=== PATIENT | male | born 1970 | race Caucasian/White ===

== ENCOUNTER → 2019-04-05 | Outpatient (CLI) | payer BC ==
--- NOTE | 2019-04-05 17:29 | KCIC ---
EXAM: CHEST PA LATERAL INDICATION: Cough. Productive cough with sputum for over one year.. TECHNIQUE: PA and lateral views COMPARISON: None FINDINGS: The heart size is normal. The great vessels appear unremarkable. There is no hilar or mediastinal mass. The lungs are clear. There is no pleural effusion or pneumothorax. There are no significant osseous abnormalities. IMPRESSION: No active cardiopulmonary disease. Consider chest CT in further evaluation given chronicity of symptoms. Electronically signed by: Doug Castillo MD (04/05/2019 5:26 PM) [facility]
--- NOTE | 2019-04-05 17:29 | KCIC ---
FOOT RIGHT 3V DATE: 04/05/2019 12:00 AM INDICATION: Pain after falling COMPARISON: 09/01/2017. FINDINGS: Bones: There is no evidence of acute fracture or dislocation. Posterior and plantar calcaneal enthesophytes. Joints: Mild degenerative changes of the midfoot. Mild to moderate degenerative changes of the first MTP joint. Miscellaneous: None. IMPRESSION: No evidence of acute fracture. Electronically signed by: Ricco Multani MD (04/05/2019 5:26 PM) [id number]
== END | disposition home or self-care (01) ==
LOC: KCIC 16:29
PROVIDERS: ATTEND Family Medicine
DX: M19.071 Primary osteoarthritis, right ankle and foot (principal); M77.51 Other enthesopathy of right foot and ankle; R05 Cough
CPT/HCPCS: 71046; 73630

== ENCOUNTER → 2019-05-14 | Day surgery (SDC) | payer BC ==
[~2019-05-14] MED LIST: IV RINGERS,LACTATED 1000ML 1,000 ML IV SCH; LIDOCAINE 2% PF 5 ML VIAL. ONE; PROPOFOL 20 ML IV ONE
--- NOTE | 2019-05-14 08:45 | CONS ---
DATE OF CONSULTATION: 05/14/2019 GASTROINTESTINAL CONSULTATION REFERRING PHYSICIAN: Vernon Quinteros MD REASON FOR CONSULTATION: Colorectal screening. HISTORY OF PRESENT ILLNESS: This is a 49-year-old male whose past medical history is significant for eye surgery and osteoarthritis, seen for screening colon exam. Bowel habits are regular without diarrhea or constipation. Prior exam in 2005 was nonrevealing. There is no family history of colon cancer or colon polyps. Weight and appetite are stable. No change in bowel habits. He is otherwise without additional complaints. PAST MEDICAL HISTORY: Noncontributory. ALLERGIES: None. MEDICATIONS: None. SOCIAL HISTORY: He is a social drinker, nonsmoker. FAMILY HISTORY: Significant for breast cancer and diabetes with multiple family members. PAST SURGICAL HISTORY: Eye surgery. REVIEW OF SYSTEMS: Per records. PHYSICAL EXAMINATION: GENERAL: Reveals a well-nourished, well-developed male. VITAL SIGNS: Temperature is 97.8, pulse 72, respiratory rate 18. LUNGS: Clear. CARDIOVASCULAR: Reveals an S1, S2 without S3, S4 or appreciable murmur. ABDOMEN: With a soft abdomen, normal bowel sounds, without appreciable hepatosplenomegaly. EXTREMITIES: Reveal no cyanosis, clubbing, or edema. IMPRESSION AND PLAN: Colorectal screening. Risks and benefits of procedure including risk of hemorrhage and perforation requiring operation have been discussed. The patient is willing to proceed at this time. I would like to thank Dr. Quinteros for allowing us to consult and participate in this patient's care. MADELEINE KIRAN MD DR: CHRISTIANA/erica JOB#: [id number] / [id number] Macey Mccain MD
[2019-05-14 08:58] VITALS: BP 128/82
== END ==
LOC: ENDOS 06:51
PROVIDERS: ATTEND Internal Medicine Gastroenterology
DX: Z12.11 Encounter for screening for malignant neoplasm of colon (principal); K64.0 First degree hemorrhoids; K63.89 Other specified diseases of intestine; E66.9 Obesity, unspecified; Z68.35 Body mass index [BMI] 35.0-35.9, adult; Z87.39 Personal history of other diseases of the musculoskeletal system and connective tissue; Z72.89 Other problems related to lifestyle
CPT/HCPCS: 45378; J2001; J2704